=== PATIENT | male | born 1995 | race Caucasian/White ===

== ENCOUNTER 2017-09-18 06:21 | Emergency (ER) | payer OTHER ==
[~2017-09-18] VITALS: Ht 182.9 cm; Wt 74.8 kg
[2017-09-18] MEDS ORDERED: FLUORESCEIN SODIUM 1 MG STRIP OP ONE (07:00)
--- NOTE | 2017-09-18 07:12 | NUR ---
Patient discharged to home in stable conditon. Written and verbal after care instructions given. Patient verbalizes understanding of instructions.
[2017-09-18] MEDS ORDERED: FLUORESCEIN SODIUM 1 MG STRIP ONE (07:15)
[2017-09-18] MEDS ORDERED: SULFACETAMIDE SOD 10% OPHT DR 15 ML BOTTLE OP ONE (07:15)
[2017-09-18] MEDS ORDERED: SULFACETAMIDE SOD 10% OPHT DR 15 ML BOTTLE ONE (07:25)
== END 2017-09-18 07:14 | disposition home or self-care (01) ==
LOC: ER 06:39
DX: S05.01XA Injury of conjunctiva and corneal abrasion without foreign body, right eye, initial encounter (principal); E11.9 Type 2 diabetes mellitus without complications; Z79.4 Long term (current) use of insulin; W21.05XA Struck by basketball, initial encounter; Y93.67 Activity, basketball; Y92.89 Other specified places as the place of occurrence of the external cause; Y99.8 Other external cause status
CPT/HCPCS: A4663